=== PATIENT | female | born 1995 | race African-American/Black ===

== ENCOUNTER 2016-11-12 14:15 | Emergency (ER) | payer BC, OTHER ==
[~2016-11-12] VITALS: Ht 162.6 cm; Wt 74.3 kg
[2016-11-12 14:19] VITALS: BP 108/69; PULSE 80; TEMP 36.9; O2SAT 100; Ht 162.6 cm; Wt 74.3 kg
[2016-11-12] MEDS ORDERED: ANTICRE6 PO (14:38)
--- NOTE | 2016-11-12 14:59 | EMERGENCY ROOM VISIT NOTE ---
ED Visit Note First contact with patient: 14:25 CHIEF COMPLAINT: Left long Finger injury HISTORY OF PRESENT ILLNESS: This 21-year-old average [place] female patient injured her left long finger earlier today when she closed it in a car door and the door locked. There was no audible snap or crack at that time. The patient is able to straighten and flex the finger and it is painful. Pain is only over the distal phalanx. No numbness or tingling. No other fingers are involved. No prior history of significant finger injury. No treatment yet. Pain is 4/10.. She states she also sprained her left wrist after falling earlier in the week but has already been evaluated for that. She is currently in a splint for it. [id number]. REVIEW OF SYSTEM: HEENT: No dizziness, visual problems, hearing loss, or tinnitus. There is no difficulty swallowing and no oral lesions are present. PULMONARY: No cough, shortness of breath, sputum production or hemoptysis. CARDIOVASCULAR: No chest pain, palpitations, shortness of breath or peripheral edema. GASTROINTESTINAL: No diarrhea, constipation, nausea, vomiting, or abdominal pain. GENITOURINARY: No dysuria, frequency, urgency or nocturia. NEUROLOGIC: No weakness, muscle tenderness, epilepsy or history of neurological problems. MUSCULOSKELETAL: No history of joint tenderness/swelling. No history of arthritis or arthralgias. SKIN: No rashes or lesions. PSYCHIATRIC: No history of depression or mental illness. ENDOCRINE: No history of diabetes, thyroid disorders, or abnormal hair growth. PMH: Supplemental sheet was reviewed and signed. Previous surgeries: None Medical history: Benign family history: Significant for diabetes, hypertension, and cancer. Parents are living. Allergies: NKDA Current medications: None SOCIAL HISTORY: Patient is a [employer] student. Single. No tobacco use, no EtOH use. Employed. PHYSICAL EXAM: Vital Signs: Afebrile. Reviewed and filed in patient's chart. General: Well-developed, well-nourished, young -[place] female, in obvious discomfort. No acute distress. She is sitting on a bed. Alert and oriented. Skin: Warm and dry with good turgor. No rashes or lesions. Mild ecchymosis present over the flexor surface of the distal phalanx. It is over the finger pad. No Erythema. The patient is not diaphoretic. No abrasions. Musculoskeletal: There is no deformity of the finger. The patient is able to extend and flex at the MCP, PIP, and DIP joints.. The PIP joint is not tender and extension is full and strong there. The DIP joint area is not swollen but is tender. Intact FDS and FDP function by isolation. Examination of the rest of the hand and fingers is benign. She does have some discomfort with palpation over her left wrist but has full motion. Neurologic: Gross sensation is intact across each of the digits by soft touch. Capillary refill is also equal for each of the digits. Data: An x-ray of the finger does not show a fracture; the bones are normal. This was read by radiology. DIAGNOSIS: Left long Fingertip contusion DISCHARGE INSTRUCTIONS: Patient was educated regarding today's findings. Conservative care measures were discussed. Ice and elevate intermittently over the next 3 days, and then use moist heat. Gentle motion daily. Tylenol and ibuprofen every 6 hours as needed for discomfort. Patient may jason tape the finger to the next finger as a biologic splint if desired. Continue to splint the wrist for support as needed. Perform gentle motion of the wrist daily. Wean out of it as her comfort dictates. She was reassured that I do not suspect tendon rupture, joint dislocation, or fracture. Current/Historical Medications Miscellaneous Medications [Antibiotic], Unknown Dose PO Allergies Coded Allergies: No Known Allergies (Unverified , 11/12/16) Vital Signs Date Time Temp Pulse Resp B/P (MAP) Pulse Ox O2 Delivery O2 Flow Rate FiO2 11/12/16 14:19 36.9 80 20 108/69 100 Room Air Departure Information Referrals No Doctor, Assigned (PCP) Patient Instructions My [facility]
--- NOTE | 2016-11-12 15:25 | DIAGNOSTIC IMAGING REPORT ---
LEFT THIRD FINGER 3 VIEWS CLINICAL HISTORY: Third finger pain. Crushing injury. FINDINGS: 3 views of the left third finger are obtained. No prior studies are available for comparison at the time of dictation. The skeletal structures are well mineralized. No fracture is seen. The third metacarpophalangeal and interphalangeal joints are well-maintained. The overlying soft tissues are within normal limits. IMPRESSION: No acute bony abnormality is seen in the left third finger. Electronically signed by: Sid Carrion M.D. 11/12/2016 3:24 PM Dictated Date/Time: 11/12/2016 3:23 PM
== END 2016-11-12 15:00 | disposition home or self-care (01) ==
LOC: C.EDB 14:18 → C.EDD 15:00
DX: S60.032A Contusion of left middle finger without damage to nail, initial encounter (principal); W22.8XXA Striking against or struck by other objects, initial encounter

== ENCOUNTER 2017-07-07 16:47 | Emergency (ER) | payer BC, OTHER ==
[~2017-07-07] VITALS: Ht 162.6 cm; Wt 81.2 kg
[~2017-07-07 16:47] MED LIST: ANTICRE6 PO
[2017-07-07 17:04] VITALS: TEMP 37.5; Ht 162.6 cm; Wt 81.2 kg
[2017-07-07] MEDS ORDERED: MUPIROCIN 2% OINT 22 GM TUBE EXT STA (17:27)
[2017-07-07] MEDS ORDERED: CLOTRIMAZOLE/BETAMETHASONE CR 15 GM TUBE EXT STA (17:31)
[2017-07-07] MEDS ORDERED: MULT-506 PO (17:44)
--- NOTE | 2017-07-07 17:45 | EMERGENCY ROOM VISIT NOTE ---
History First contact with patient: 17:13 Chief Complaint: SKIN PROBLEM Stated Complaint: ITCHING,BURNING,PUSSY History of Present Illness The patient is a 22 year old female who presents to the Emergency Room with complaints of irritation in her belly button has been going on for several days. The patient had something similar back in April. It resolved on its own. The patient has been trying apple cider vinegar at home with minimal relief. It is significantly itchy. It also had some minor bleeding. She denies any fever or chills. She notes some white drainage from the area. Review of Systems 6 system review negative. Please see pertinent positives in the history of present illness section. Past Medical/Surgical History Seasonal allergies Social History Smoking Status: Never Smoker Occupation Status: [employer] student Current/Historical Medications Scheduled Multivitamin (Multivitamin), 1 TAB PO DAILY Physical Exam Vital Signs Date Time Temp Pulse Resp B/P (MAP) Pulse Ox O2 Delivery O2 Flow Rate FiO2 07/07/17 18:12 74 18 121/71 99 07/07/17 17:04 37.5 70 18 117/74 99 Room Air Physical Exam VITALS: Vitals are noted on the nurse's note and reviewed by myself. Vital signs stable. GENERAL: 22-year-old female, in no acute distress, nondiaphoretic, well- developed well-nourished. SKIN: The skin particularly on the left side of the umbilicus is excoriated with a small amount of white drainage. No surrounding erythema or induration noted. No pointing. No area of induration HEAD: Normocephalic atraumatic. MUSCULOSKELETAL:Strength 5/5 throughout. NEURO: Patient was alert and oriented to person place and time. Normal sensation to touch. No focal neurological deficits. Medical Decision & Procedures Medications Administered Medications (Trade) Dose Ordered Sig/Tahir Route Start Time Stop Time Status Last Admin Dose Admin Mupirocin (Bactroban 2% Oint) 1 appln ONE STAT EXT 07/07/17 17:27 07/07/17 17:30 DC 07/07/17 17:52 1 APPLN Betamethasone/ Clotrimazole (Lotrisone Crm) 1 appln ONE STAT EXT 07/07/17 17:31 07/07/17 17:32 DC 07/07/17 17:52 1 APPLN ED Course The patient was seen and examined She was given Lotrisone cream in addition to Bactroban Discharge instructions were reviewed, and she was discharged in good condition Medical Decision Differential diagnosis: Taylor dermatitis, folliculitis, bacterial infection, abscess, eczema This patient is a 22-year-old female that presents emergency department with a rash in the area of her umbilicus. On exam, the area was excoriated. There was some white drainage noted. The area was fairly well demarcated. This is likely a candidal dermatitis. This will be treated with Lotrisone. A culture was taken. The patient was also given a prescription for Bactroban in case there is any bacterial component that is causing the skin to be more excoriated. She will apply these creams for 10 days. She will follow-up with [facility] next week for recheck. She will return to the emergency department with worsening symptoms. This chart was completed in part utilizing [employer] Speech Voice Recognition software. Attempts were made to minimize the grammatical errors, random word insertions, pronoun errors and incomplete sentences. Any formal questions or concerns about the content, text or information contained within the body of this dictation should be directly addressed to the provider for clarification. Impression Primary Impression: Candidal dermatitis Departure Information Dispostion Home / Self-Care Condition GOOD Referrals No Doctor, Assigned (PCP) Patient Instructions My [facility] Additional Instructions You have been evaluated in the emergency department for irritation in the area of the belly button. This is likely a yeast infection. Please apply Lotrisone cream to the area 3 times daily for 10 days Please also apply Bactroban to the area twice daily for 7 days. A culture was taken. You will be notified if there are any abnormalities. Please have the area rechecked in 1 week Do not hesitate to return to the emergency department with any new, worsening or concerning symptoms; especially, fever, increased redness, pain or swelling to the area
[2017-07-07 18:12] VITALS: BP 121/71; PULSE 74; O2SAT 99
== END 2017-07-07 18:13 | disposition home or self-care (01) ==
LOC: C.EDB 16:48 → C.EDD 18:13
DX: B37.2 Candidiasis of skin and nail (principal)